=== PATIENT | male | born 1980 | race Caucasian/White ===

== ENCOUNTER 2023-08-12 19:07 | Emergency (ER) | payer MEDICAID, SELFPAY ==
[2023-08-12 19:20] VITALS: BP 132/89; PULSE 112; RESP 19; TEMP 37.5; O2SAT 99; BMI 34.4
[2023-08-12 19:44] LABS: UTC Influenza A Antigen Negative (Negative); UTC Influenza B Antigen Negative (Negative)
--- NOTE | 2023-08-12 19:46 | EXP.UTC ---
Discharge Plan Disposition Patient Disposition: Home, Self-Care Condition: Good Prescriptions Prescriptions: No Action cyclobenzaprine 10 mg tablet 10 mg PO DAILY sumatriptan succinate 100 mg tablet 100 mg PO DAILY allopurinol 100 mg tablet 100 mg PO DAILY oxycodone-acetaminophen 10-325 mg tablet 1 tab PO QID tamsulosin 0.4 mg capsule 0.4 mg PO DAILY gabapentin 800 mg tablet 800 mg PO DAILY simvastatin 20 mg tablet 20 mg PO DAILY albuterol sulfate 90 mcg/actuation HFA aerosol inhaler 2 puff INHALATION Q4HP PRN (Reason: SOA) topiramate 100 mg tablet 100 mg PO DAILY levocetirizine 5 mg tablet 5 mg PO DAILY Xarelto 20 mg tablet 20 mg PO DAILY Referrals Follow up/Referrals: Ciera Vasquez MD [Primary Care Provider] - See instructions Clinical Impressions Clinical Impression: Upper respiratory tract infection Qualifiers: URI type: unspecified URI Qualified Code(s): J06.9 - Acute upper respiratory infection, unspecified Instructions Patient Instructions: DI for Viral Upper Respiratory Infection -- Adult Discharge ED Provider: Betty Nieto [facility] General Stated complaint: fever, body aches Mode of Arrival: Ambulatory Source of Information: Patient Limitations: No Limitations Time Seen by Provider: 08/12/23 19:46 Description of Symptoms (Recalled from Triage Doc. by RN): PATIENT C/O CHILLS, BODY ACHES, COUGH AND FATIGUE THAT STARTED THIS MORNING HEENT Symptoms (Recalled from RN notes): No Resp Symptoms (Recalled from RN notes): Yes Skin Symptoms (Recalled from RN notes): No MS Symptoms (Recalled from RN notes): No Functional Status (Recalled from RN notes): WNL History of Present Illness Provider Complaint: Pt relates that he had fatigue, fever, cough, sinus pressure/drainage, chills, and body aches that started this morning. Related Data Home Medications Medication Instructions Recorded Confirmed albuterol sulfate 90 mcg/actuation 2 puff inhalation Q4HP PRN SOA 08/12/23 08/12/23 aerosol inhaler allopurinol 100 mg tablet 100 mg PO DAILY 08/12/23 08/12/23 cyclobenzaprine 10 mg tablet 10 mg PO DAILY 08/12/23 08/12/23 gabapentin 800 mg tablet 800 mg PO DAILY 08/12/23 08/12/23 levocetirizine 5 mg tablet 5 mg PO DAILY 08/12/23 08/12/23 oxycodone-acetaminophen 10 mg-325 1 tab PO QID 08/12/23 08/12/23 mg tablet rivaroxaban 20 mg tablet (Xarelto) 20 mg PO DAILY 08/12/23 08/12/23 simvastatin 20 mg tablet 20 mg PO DAILY 08/12/23 08/12/23 sumatriptan succinate 100 mg tablet 100 mg PO DAILY 08/12/23 08/12/23 tamsulosin 0.4 mg capsule 0.4 mg PO DAILY 08/12/23 08/12/23 topiramate 100 mg tablet 100 mg PO DAILY 08/12/23 08/12/23 Allergies Allergy/AdvReac Type Severity Reaction Status Date / Time procaine [From Novocain] Allergy Intermediate LIP Verified 11/01/19 23:28 SWELLING, HEAD SWELLING betamethasone Allergy Mild Verified 11/01/19 23:28 [From Celestone] Worker's Comp Is this a Worker's Comp case?: No [facility] Disclaimer: The information contained in this section may have been updated after the patient was seen, as this information can be updated by other users. Medical History (Updated 08/12/23 @ 19:56 by Rosa Maria Camp RN) Asthma COPD (chronic obstructive pulmonary disease) History of gastroesophageal reflux (GERD) Hyperlipidemia Kidney stone Surgical History (Updated 08/12/23 @ 19:56 by Rosa Maria Camp RN) History of cardiac cath Social History Smoking Status: Current every day smoker tobacco type: cigarettes packs per day: 2 second hand exposure: Yes alcohol intake: current current occupational status: employed Travel in the last 8 weeks: None household members: family housing: house caffeine: Yes ROS Obtained: Yes All systems reviewed & no additional complaints except as documented Constitutional Constitutional: Reports system reviewed and no ad
[2023-08-12 19:55] VITALS: BP 132/89; PULSE 112; RESP 19; TEMP 37.5; O2SAT 99
[2023-08-12 19:55] LABS: Adenovirus,PCR Not Detected (NotDetected); Coronavirus 229E Not Detected (NotDetected); Coronavirus NL63 Not Detected (NotDetected); Coronavirus OC43 Not Detected (NotDetected); Coronovirus HKU1,PCR Not Detected (NotDetected); Human Metapneumovirus Not Detected (NotDetected); Influenza A, PCR Not Detected (NotDetected); Influenza AH1, 2009 Not Detected (NotDetected); Influenza AH1, PCR Not Detected (NotDetected); Influenza AH3,PCR Not Detected (NotDetected); Influenza B, PCR Not Detected (NotDetected); Parainfluenza 1, PCR Not Detected (NotDetected); Parainfluenza 2, PCR Not Detected (NotDetected); Parainfluenza 3, PCR Not Detected (NotDetected); Parainfluenza 4, PCR Not Detected (NotDetected); Respiratory Syncytial Virus Not Detected (NotDetected); Rhinovirus/Enterovirus Not Detected (NotDetected)
[2023-08-13 02:47] LABS: Coronavirus 19, PCR Detected (NotDetected)
== END 2023-08-12 19:58 | disposition home or self-care (01) ==
PROVIDERS: Emergency Provider Nurse Practitioner Family; PCP Family Medicine
DX: U07.1 COVID-19 (principal); R50.9 Fever, unspecified; R05.9 Cough, unspecified; R09.81 Nasal congestion; R53.81 Other malaise; M79.18 Myalgia, other site; R53.83 Other fatigue; F17.210 Nicotine dependence, cigarettes, uncomplicated; J44.9 Chronic obstructive pulmonary disease, unspecified; E78.5 Hyperlipidemia, unspecified
CPT/HCPCS: 87581; 87632; 87635; 87798; 87804; 99203; 99212; G0463

== ENCOUNTER 2023-11-02 20:43 | Outpatient (CLI) | payer MEDICARE, SELFPAY ==
[2023-11-02 18:43] LABS: Basophils # 0.1 K/mm3 (0-0.2); Basophils % 1.2 % (0.1-2.0); Eosinophils # 0.2 K/mm3 (0.0-0.4); Eosinophils % 2.2 % (0.1-12.0); Hemoglobin 16.6 g/dL (14.1-18.0); Lymphocytes # 2.7 K/mm3 (0.7-4.5); Mean Corpuscular HGB Conc 32.5 g/dL (31.8-35.4); Mean Corpuscular Volume 98.3 fl (80-94); Mean Platelet Volume 9.2 fl (7.4-10.4); Monocytes # 0.5 K/mm3 (0.1-1.0); Monocytes % 6.5 % (1.7-9.3); Neutrophils # 4.3 K/mm3 (1.8-7.8); Neutrophils % 55.1 % (37.0-80.0); Platelet Count 355 K/mm3 (142-424); Red Blood Count 5.19 M/mm3 (4.60-6.20); Red Cell Distribution Width 14.3 % (11.5-17.5); White Blood Count 7.7 K/mm3 (4.8-10.8)
[2023-11-02 18:57] LABS: Alanine Aminotransferase 40 U/L (12-78); Albumin/Globulin Ratio 1.8 (1.1-1.8); Alkaline Phosphatase 110 U/L (38-126); Anion Gap 15.1 mEq/L (5-15); Aspartate Amino Transferase 33 U/L (17-59); Bilirubin,Total 0.7 mg/dl (0.2-1.3); Blood Urea Nitrogen 13 mg/dl (9-20); Calcium 10.2 mg/dl (8.4-10.2); Carbon Dioxide 27 mmol/L (22.0-30.0); Chloride 104 mmol/L (98-107); Chol/HDL Ratio 5.9 (1-3.5); Cholesterol 207 mg/dl (140-200); Estimated Glomerular Filt Rate 81 ml/min (>60); GFR (African American) 98 ML/MIN (>60); Globulin 2.8 g/dL (1.3-3.2); Glucose 99 mg/dl (74-100); HDL Cholesterol 35 mg/dl (40-60); Potassium 5.1 mmoL/L (3.5-5.1); Sodium 141 mmol/L (136-145); Total Protein,Serum 7.8 g/dl (6.3-8.2); Triglycerides 149 mg/dl (30-150); VLDL Cholesterol 30 mg/dL (0-40)
[2023-11-02 19:14] LABS: Direct LDL Cholesterol 122.04 mg/dL (100-129)
[2023-11-02 19:17] LABS: 25-OH Vitamin D, Total 26.7 ng/mL (30-100)
[2023-11-02 19:37] LABS: Prostate Specific Ag Screen 0.6 ng/ml (0.0-4.0); Thyroid Stimulating Hormone 0.98 uIU/mL (0.465-4.68)
[2023-11-02 21:34] LABS: Hemoglobin A1C 5.7 % (4.0-6.0)
== END 2023-11-02 23:59 ==
LOC: LAB.DROPOF 20:43
PROVIDERS: PCP Student in an Organized Health Care Education/Training Program; Visit Provider Student in an Organized Health Care Education/Training Program
DX: Z12.5 Encounter for screening for malignant neoplasm of prostate (principal); E78.5 Hyperlipidemia, unspecified; R73.9 Hyperglycemia, unspecified; E55.9 Vitamin D deficiency, unspecified; Z68.34 Body mass index [BMI] 34.0-34.9, adult
CPT/HCPCS: 80053; 80061; 82306; 83036; 84443; 85025; G0103

== ENCOUNTER 2024-02-02 18:00 | Outpatient (CLI) | payer MEDICARE, SELFPAY ==
[2024-02-02 18:52] LABS: Chloride 107 mmol/L (98-107)
[2024-02-02 18:53] LABS: Potassium 4.6 mmoL/L (3.5-5.1); Sodium 140 mmol/L (136-145)
[2024-02-02 18:55] LABS: Alanine Aminotransferase 41 U/L (12-78); Anion Gap 14.6 mEq/L (5-15); Aspartate Amino Transferase 29 U/L (17-59); Blood Urea Nitrogen 14 mg/dl (9-20); Carbon Dioxide 23 mmol/L (22.0-30.0); Estimated Glomerular Filt Rate 91 ml/min (>60); GFR (African American) 110 ML/MIN (>60)
[2024-02-02 18:56] LABS: Albumin Level 4.7 g/dl (3.5-5.0); Albumin/Globulin Ratio 1.7 (1.1-1.8); Alkaline Phosphatase 94 U/L (38-126); Bilirubin,Total 0.3 mg/dl (0.2-1.3); Calcium 9.9 mg/dl (8.4-10.2); Chol/HDL Ratio 4.4 (1-3.5); Cholesterol 174 mg/dl (140-200); Globulin 2.8 g/dL (1.3-3.2); Glucose 95 mg/dl (74-100); HDL Cholesterol 40 mg/dl (40-60); Total Protein,Serum 7.5 g/dl (6.3-8.2); Triglycerides 155 mg/dl (30-150); VLDL Cholesterol 31 mg/dL (0-40)
[2024-02-02 19:06] LABS: Basophils # 0.1 K/mm3 (0-0.2); Basophils % 0.9 % (0.1-2.0); Eosinophils # 0.2 K/mm3 (0.0-0.4); Eosinophils % 2.6 % (0.1-12.0); Hematocrit 49.2 % (42.0-52.0); Hemoglobin 15.7 g/dL (14.1-18.0); Lymphocytes # 2.3 K/mm3 (0.7-4.5); Lymphocytes % 35.5 % (10-50); Mean Corpuscular HGB Conc 31.9 g/dL (31.8-35.4); Mean Platelet Volume 9.1 fl (7.4-10.4); Monocytes # 0.4 K/mm3 (0.1-1.0); Monocytes % 6.1 % (1.7-9.3); Neutrophils # 3.6 K/mm3 (1.8-7.8); Neutrophils % 54.9 % (37.0-80.0); Platelet Count 345 K/mm3 (142-424); Red Blood Count 5.07 M/mm3 (4.60-6.20); Red Cell Distribution Width 14.6 % (11.5-17.5); White Blood Count 6.5 K/mm3 (4.8-10.8)
[2024-02-02 19:07] LABS: Direct LDL Cholesterol 99.68 mg/dL (100-129)
[2024-02-02 19:11] LABS: 25-OH Vitamin D, Total 38.3 ng/mL (30-100)
[2024-02-02 19:37] LABS: Hemoglobin A1C 5.6 % (4.0-6.0)
[2024-02-03 10:02] LABS: HIV (1&2) Antibody Rapid NON REACTIVE
[2024-02-04 09:10] LABS: HCV Ab Non Reactive (Non Reactive)
== END 2024-02-02 23:59 | disposition home or self-care (01) ==
LOC: LAB.DROPOF 02-03 08:50
PROVIDERS: PCP Student in an Organized Health Care Education/Training Program; Visit Provider Student in an Organized Health Care Education/Training Program
DX: R73.03 Prediabetes (principal); E78.5 Hyperlipidemia, unspecified; E55.9 Vitamin D deficiency, unspecified; Z68.34 Body mass index [BMI] 34.0-34.9, adult; Z11.4 Encounter for screening for human immunodeficiency virus [HIV]; Z11.59 Encounter for screening for other viral diseases
CPT/HCPCS: 80053; 80061; 82306; 83036; 85025

== ENCOUNTER 2024-02-08 00:47 | Emergency (ER) | payer MEDICARE, SELFPAY ==
[2024-02-08 00:48] VITALS: BP 137/107; PULSE 82; RESP 20; TEMP 36.7; O2SAT 100; BMI 32.7
--- NOTE | 2024-02-08 01:31 | HMH.EDGENADL ---
Discharge Plan Disposition Patient Disposition: Home, Self-Care Prescriptions Prescriptions: No Action ketotifen fumarate [Allergy Eye (ketotifen)] 0.025 % (0.035 %) drops 1 drp ophthalmic (eye) BID Rx Instructions: administer at least 8 hours apart ondansetron 8 mg tablet,disintegrating 8 mg PO DAILY PRN (Reason: nausea and vomiting) Qty: 30 1RF azelastine 205.5 mcg (0.15 %) spray,non-aerosol 2 spray intranasal HS Qty: 30 2RF Rx Instructions: 1-2 sprays administered into each nostril cholecalciferol (vitamin D3) 50 mcg (2,000 unit) capsule 50 mcg PO DAILY Qty: 90 0RF tamsulosin 0.4 mg capsule 0.4 mg PO DAILY Qty: 90 1RF simvastatin 20 mg tablet 20 mg PO DAILY Qty: 90 3RF sildenafil 50 mg tablet 50 mg PO DAILY PRN (Reason: sexual activity) Qty: 30 0RF Rx Instructions: administer 30 minutes to 4 hours before activity Xarelto 20 mg tablet 20 mg PO DAILY Qty: 90 3RF polyethylene glycol 3350 17 gram powder in packet 17 g PO DAILY Qty: 14 2RF omeprazole 40 mg capsule,delayed release(DR/EC) 40 mg PO DAILY Qty: 90 2RF montelukast 10 mg tablet 10 mg PO HS Qty: 90 3RF allopurinol 100 mg tablet 100 mg PO DAILY Qty: 90 1RF cyclobenzaprine 10 mg tablet 10 mg PO DAILY oxycodone-acetaminophen 10-325 mg tablet 1 tab PO QID gabapentin 800 mg tablet 800 mg PO DAILY Referrals Follow up/Referrals: Nola Haque PA [Primary Care Provider] - See instructions Activity Restrictions/Add. Instructions Additional Instructions/Restrictions: You were evaluated in the ER. You are appropriate for discharge at this time. Follow-up first thing in the morning for venous Doppler ultrasound with the echo lab. Continue taking your home medications as prescribed. Return to the ER with new, worsening, or otherwise concerning symptoms. Clinical Impressions Clinical Impression: Acute pain of left lower extremity Discharge ED Provider: Johnny Nogueira Adult [facility] General Chief complaint: Extremity Injury, Lower Stated complaint: left leg pain, swelling, history of bloodclots Time Seen by Provider: 02/08/24 00:53 Mode of Arrival: Ambulatory Source of Information: Patient Limitations: No Limitations Description of Symptoms (Recalled from ER Triage Doc. by RN): pt is here tonight due to the fact he has a known history of blood clots and is on 20 mg daily xarelto, 3 weeks ago pt hit front of left leg and tonight he noted swelling to area and a knot and they are here to get it checked out History of Present Illness HPI narrative: 43-year-old male with a history of DVT on the 20 mg Xarelto daily reports he has not missed any doses presents to the ER for concerns of distal left lower extremity swelling, mild pain. Patient states he is concerned he could have a blood clot. He reports that 3 weeks ago he hit the front of his left leg, but tonight he noticed slight swelling and points to his distal anterior medial tibia area. He denies fevers, chills, redness, he denies any traumatic injury such as rolling the ankle or striking this area. He is primarily concerned for DVT. Related Data Home Medications Medication Instructions Recorded Confirmed cyclobenzaprine 10 mg tablet 10 mg PO DAILY 08/12/23 02/02/24 gabapentin 800 mg tablet 800 mg PO DAILY 08/12/23 02/02/24 oxycodone-acetaminophen 10 mg-325 1 tab PO QID 08/12/23 02/02/24 mg tablet ketotifen fumarate 0.025 % (0.035 1 drp ophthalmic (eye) BID 11/02/23 02/02/24 %) eye drops (Allergy Eye (ketotifen)) Previous Rx's Medication Instructions Recorded allopurinol 100 mg tablet 100 mg PO DAILY #90 tabs 11/03/23 cholecalciferol (vitamin D3) 50 50 mcg PO DAILY #90 caps 11/03/23 mcg (2,000 unit) capsule montelukast 10 mg tablet 10 mg PO HS #90 tabs 11/03/23 omeprazole 40 mg capsule,delayed 40 mg PO DAILY #90 caps 11/03/23 release polyethylene glycol 3350 17 gram 17 g PO DAILY #14 ea 11/03/23 oral powder packet rivaroxaban 20 mg tablet (Xarelto) 20 mg PO DAILY #90 tabs 11/03/23 sildenafil 50 mg tablet 50 mg PO DAILY PRN sexual activity 11/03/23 #30 tabs simvastatin 20 mg tablet 20 mg PO DAILY #90 tabs 11/03/23 tamsulosin 0.4 mg capsule 0.4 mg PO DAILY #90 caps 11/03/23 azelastine 205.5 mcg (0.15 %) 2 spray intranasal HS #30 mL 02/02/24 nasal spray ondansetron 8 mg disintegrating 8 mg PO DAILY PRN nausea and 02/02/24 tablet vomiting #30 tabs Allergies Allergy/AdvReac Type Severity Reaction Status Date / Time procaine [From Novocain] Allergy Intermediate LIP Verified 02/02/24 13:14 SWELLING, HEAD SWELLING betamethasone Allergy Mild Verified 02/02/24 13:14 [From Celestone] PFSH [facility] Disclaimer: The information contained in this section may have been updated after the patient was seen, as this information can be updated by other users. Medical History (Updated 02/08/24 @ 01:34 by Johnny Nogueira MD) Kidney stone History of gastroesophageal reflux (GERD) COPD (chronic obstructive pulmonary disease) Asthma Hyperlipidemia Surgical History History of cardiac cath Family History Other Alcoholism Asthma Cancer Diabetes Heart attack Hyperlipidemia Hypertension Social History Smoking Status: Former smoker tobacco type: cigarettes packs per day: 2 second hand exposure: Yes alcohol intake: current alcohol intake frequency: holidays/special occasions only substance use type: denies use current occupational status: employed Travel in the last 8 weeks: None household members: family housing: house marital status: caffeine: Yes ROS Obtained: Yes All systems reviewed & no additional complaints except as documented Constitutional Constitutional: Denies chills, Denies fever(s), Denies headache(s) and Denies weakness Eyes Eyes: Denies change in vision ENT Ears, Nose, Mouth, and Throat: Denies dizziness, Denies headache(s), Denies nasal congestion and Denies sore throat Cardiovascular Cardiovascular: Denies chest pain, Denies dyspnea and Denies leg edema Respiratory Respiratory: Denies cough and Denies dyspnea Gastrointestinal Gastrointestingal: Denies constipation, diarrhea, nausea or vomiting Genitourinary Male Genitourinary: Denies difficulty urinating Musculoskeletal Musculoskeletal: Denies arthralgias, Denies myalgias, Denies numbness and Denies tingling Comments: Positive for subjective distal left lower extremity swelling, patient also complains of pain in this area Integumentary/Breasts Skin/Breast: Denies change in pigmentation Neurologic Neurologic: Denies dizziness, Denies headache(s), Denies numbness, Denies tingling and Denies weakness Physical Exam General General appearance: alert and in no apparent distress Head Head exam: atraumatic and normocephalic Eye Eye exam: Present PERRL and EOMI ENT ENT exam: Present mucous membranes moist Neck Neck exam: Present normal inspection and full ROM Chest Chest inspection: Present symmetric chest wall rise Respiratory Respiratory exam: Absent respiratory distress or stridor Cardiovascular Cardiovascular exam: Present regular rate, normal rhythm and other (2+ distal pulses in all extremities) Extremities Exam Extremities exam: Present full ROM and tenderness (trace TTP over the distal anteromedial L tibia); Absent edema or joint swelling (I do not appreciate any visual or palpable swelling of the left lower extremity, no erythema, no findings of injury, range of motion full) Neurological Exam Neurological exam: Present alert and oriented X3; Absent motor sensory deficit Psychiatric Psychiatric exam: Present normal affect and normal mood Skin Skin exam: Present warm and dry Medical Decision Making Medical Records Medical records reviewed: Yes I reviewed the patient's medical records. MR Comment: Records demonstrate patient is currently taking Xarelto 20 mg daily for history of DVT Lloyd Inquiry Pt receiving controlled substance: No Vital Signs: 02/08/24 00:48 02/08/24 01:43 Temperature 98.0 F 98.0 F Temperature Source Oral Oral Pulse Rate 80 Pulse Rate [Right Radial] 82 Respiratory Rate 20 18 Blood Pressure 127/97 H Blood Pressure [Right Arm] 137/107 H Blood Pressure Mean [Right Arm] 117 02 Sat by Pulse Oximetry 100 Oxygen Delivery Method Room Air Orders (Tests/Meds): ORDERS Category Date Time Status POCUS Point of Care (ER Only) Stat Exams 02/08/24 00:58 Ordered Medical Decision Narrative: In summary, this 43-year-old male presents to the emergency department today with left lower extremity swelling. On initial evaluation patient is hemodynamically stable, afebrile, resting comfortably, I do not appreciate obvious swelling, erythema, or other abnormalities of the distal left lower extremity, patient describes mild tenderness to palpation over the anterior/medial aspect of the distal tibia, however I do not appreciate any findings of injury or other abnormality, neurovascularly intact. Differential diagnosis includes but is not limited to cellulitis, DVT, I considered possibility of musculoskeletal injury however patient does not have any history of traumatic injury and is ambulatory, I do not suspect fracture, dislocation, or acute osseous injury. Patient does not require any labs at this time. I personally performed and interpreted bedside DVT ultrasound of the left lower extremity. I do not appreciate any findings of DVT, I also do not appreciate cellulitis on this ultrasound. At this time patient is appropriate for discharge. Outpatient DVT Doppler study has been ordered, echo lab should contact him in the morning. He is reassured by the ultrasound tonight. I encouraged him to continue taking all of his home medications as previously prescribed and to make an appoint with his primary care physician for reevaluation in a few days as well. He also received strict return precautions for the ER. He indicated understanding and the patient was discharged in stable condition. Procedures Miscellaneous Procedure Procedure Performed: Limited DVT ultrasound Indication: Limited compression ultrasonography of the left lower extremity was performed to evaluate for non-compressibility of the deep veins in the patient. The ultrasound was performed with the following indications, as noted in the H&P: Distal left lower extremity swelling in the setting of prior DVT, patient takes 20 mg of Xarelto daily. Identified structures: Left common femoral vein, femoral vein, popliteal vein were examined. Findings: Lower Extremity: Left CFV: Good compressibility Left FV good compressibility Left Popliteal vein: Good compressibility Soft tissues of the distal anterior/medial tibia were also examined for concerns of swelling, tenderness, no findings of cellulitis, abscess, normal soft tissue exam Impression: Normal left lower extremity DVT scan Normal soft tissue exam Images were saved to permanent archive The study was technically adequate CPT: 46287-46-CS Lower extremity: 72828-41 This study was performed by me, and I personally interpreted all images/videos. Based on my clinical judgement, these images were adequate and did not necessitate further imaging. Critical Care Critical Care Time Critical Care Time: No
[2024-02-08 01:43] VITALS: BP 127/97; PULSE 80; RESP 18; TEMP 36.7; O2SAT 100
== END 2024-02-08 01:44 | disposition home or self-care (01) ==
PROVIDERS: Emergency Provider Emergency Medicine; PCP Student in an Organized Health Care Education/Training Program
DX: M79.662 Pain in left lower leg (principal); Z86.718 Personal history of other venous thrombosis and embolism; Z79.01 Long term (current) use of anticoagulants
CPT/HCPCS: 99284

== ENCOUNTER 2024-07-10 13:18 | Outpatient (CLI) | payer MEDICARE, SELFPAY | END 2024-07-10 23:59 | disposition home or self-care (01) | LOC: LAB.DROPOF 07-11 07:51 | PROVIDERS: PCP Nurse Practitioner Family; Visit Provider Nurse Practitioner Family | DX: J02.9 Acute pharyngitis, unspecified (principal) | CPT/HCPCS: 87070 ==

== ENCOUNTER 2024-08-15 10:29 | Outpatient (CLI) | payer MEDICARE, SELFPAY ==
[2024-08-15 18:46] LABS: Basophils % 0.7 % (0.1-2.0); Eosinophils % 2.6 % (0.1-12.0); Hematocrit 45.1 % (42.0-52.0); Hemoglobin 14.9 g/dL (14.1-18.0); Lymphocytes # 1.9 K/mm3 (0.7-4.5); Lymphocytes % 31.3 % (10-50); Mean Corpuscular Hemoglobin 30.5 pg (27.0-31.2); Mean Corpuscular Volume 92.2 fl (80-94); Mean Platelet Volume 10.9 fl (7.4-10.4); Monocytes # 0.6 K/mm3 (0.1-1.0); Monocytes % 10.5 % (1.7-9.3); Neutrophils # 3.3 K/mm3 (1.8-7.8); Neutrophils % 54.6 % (37.0-80.0); Platelet Count 345 K/mm3 (142-424); Red Blood Count 4.89 M/mm3 (4.60-6.20); Red Cell Distribution Width 13.6 % (11.5-17.5); White Blood Count 6.1 K/mm3 (4.8-10.8)
[2024-08-15 18:47] LABS: Eosinophils # 0.2 K/mm3 (0.0-0.4)
[2024-08-15 19:21] LABS: Alanine Aminotransferase 38 U/L (12-78); Albumin Level 4.6 g/dl (3.5-5.0); Albumin/Globulin Ratio 1.8 (1.1-1.8); Alkaline Phosphatase 80 U/L (38-126); Anion Gap 14.8 mEq/L (5-15); Aspartate Amino Transferase 30 U/L (17-59); Bilirubin,Total 0.8 mg/dl (0.2-1.3); Blood Urea Nitrogen 13 mg/dl (9-20); Calcium 9.9 mg/dl (8.4-10.2); Carbon Dioxide 27 mmol/L (22.0-30.0); Chloride 103 mmol/L (98-107); Chol/HDL Ratio 4.9 (1-3.5); Cholesterol 173 mg/dl (140-200); Estimated Glomerular Filt Rate 105 ml/min (>60); GFR (African American) 126 ML/MIN (>60); Globulin 2.5 g/dL (1.3-3.2); Glucose 78 mg/dl (74-100); HDL Cholesterol 35 mg/dl (40-60); Potassium 4.8 mmoL/L (3.5-5.1); Sodium 140 mmol/L (136-145); Total Protein,Serum 7.1 g/dl (6.3-8.2); Triglycerides 157 mg/dl (30-150); VLDL Cholesterol 31 mg/dL (0-40)
[2024-08-15 19:32] LABS: Direct LDL Cholesterol 112.57 mg/dL (100-129)
[2024-08-15 19:36] LABS: 25-OH Vitamin D, Total 31.9 ng/mL (30-100)
[2024-08-15 21:46] LABS: Hemoglobin A1C 5.4 % (4.0-6.0)
== END 2024-08-15 23:59 | disposition home or self-care (01) ==
LOC: LAB.DROPOF 08-19 10:20
PROVIDERS: PCP Student in an Organized Health Care Education/Training Program; Visit Provider Student in an Organized Health Care Education/Training Program
DX: E78.5 Hyperlipidemia, unspecified (principal); R73.03 Prediabetes; E66.9 Obesity, unspecified; E55.9 Vitamin D deficiency, unspecified; Z68.34 Body mass index [BMI] 34.0-34.9, adult
CPT/HCPCS: 80053; 80061; 82306; 83036; 85025